=== PATIENT | male | born 1970 | race Caucasian/White ===

== ENCOUNTER 2024-11-25 18:32 | Inpatient (IN) | payer BC, OTHER ==
[~2024-11-25] VITALS: Ht 162.6 cm; Wt 82.9 kg
[~2024-11-25 18:32] MED LIST: UNK ABX
--- NOTE | 2024-11-25 18:40 | ED.PDOC ---
Mult. trauma (HPI) HPI Comments PT BIBA FOR FALLING OFF LADDER APPROX. 6FT. 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 (-) LOC, (+) LEFT SHOULDER & BACK PAIN. C-COLLAR IN PLACE. GCS-15, ALL VSS. Chief Complaint: Fall Injury Time Seen by MD: 18:39 Primary Care Provider: MONICA Reviewed notes: Nurses Notes, Medications, Allergies Allergies: Coded Allergies: No Known Drug Allergy (Verified Allergy, Unknown, 11/25/19) Home Meds Reported Medications [Unk Abx] No Conflict Check 10/04/11 Information Source: Patient Past Medical History PAST MEDICAL HISTORY: Denies Surgical History: Denies all surgeries Family History Family History: Reviewed,noncontributory to illness, No family hx of Cancer, No family hx of DM, No family hx of Heart tevin, No family hx of HTN, No family hx ofKidney tevin, No family hx of Liver tevin, No family hx of Lung tevin, No family hx of Stroke Social History Smoker: Non-Smoker Alcohol: Denies ETOH Use Drugs: Denies Drug Use Constitutional: denies: chills, diaphoresis, fatigue, fever, malaise, sweats, weakness, others EENTM: denies: blurred vision, double vision, ear bleeding, ear discharge, ear drainage, ear pain, ear ringing, eye pain, eye redness, hearing loss, mouth pain, mouth swelling, nasal discharge, nose bleeding, nose congestion, nose pain, photophobia, tearing, throat pain, throat swelling, voice changes, others Respiratory: denies: cough, hemoptysis, orthopnea, SOB at rest, shortness of breath, SOB with excertion, stridor, wheezing, others Cardiovascular: denies: chest pain, dizzy spells, diaphoresis, Dyspnea on exertion, edema, irregular heart beat, left arm pain, lightheadedness, palpitations, PND, syncope, others Gastrointestinal: denies: abdomen distended, abdominal pain, blood streaked bowels, constipated, diarrhea, dysphagia, difficulty swallowing, hematemesis, melena, nausea, poor appetite, poor fluid intake, rectal bleeding, rectal pain, vomiting, others Genitourinary: denies: burning, dysuria, flank pain, frequency, hematuria, incontinence, penile discharge, penile sore, pain, testicle pain, testicle swelling, urgency, others Neurological: reports: headache; denies: dizziness, fainting, left sided numbness, left sided weakness, numbness, paresthesia, pre-existing deficit, right sided numbness, right sided weakness, seizure, speech problems, tingling, tremors, weakness, others Musculoskeletal: reports: back pain, muscle pain, muscle stiffness, neck pain; denies: gout, joint pain, joint swelling, others Integumetry: reports: wounds; denies: bruises, change in color, change in hair/nails, dryness, laceration, lesions, lumps, rash, others Allergic/Immunocompromised: denies: Difficulty Healing, Frequent Infections, Hives, Itching, others Hematologic/Lymphatic: denies: anemia, blood clots, easy bleeding, easy bruising, swollen glands, others Endocrine: denies: excessive hunger, excessive sweating, excessive thirst, excessive urination, flushing, intolerance to cold, intolerance to heat, unexplained weight gain, unexplained weight loss, others Psychiatric: denies: anxiety, bipolar disorder, depression, hopeless, panic disorder, schizophrenia, sleepless, suicidal, others Physical Exam General Appearance: No Apparent Distress, Normal HEENT: Pharynx Normal, TMs Normal Neck: Limited Range of Motion, Tender Lateral Respiratory: Chest Non-Tender, Lungs Clear, No Accessory Muscle Use, No Respiratory Distress, Normal Breath Sounds Cardiovascular: No Edema, No JVD, No Murmur, No Gallop, Normal Peripheral Pulses, Regular Rate/Rhythm Breast Exam: Deferred Gastrointestinal: No Organomegaly, Non Tender, No Pulsatile Mass, Normal Bowel Sounds, Soft Genitalia: Deferred Pelvic: Deferred Rectal: Deferred Extremities: Normal capillary refill, Normal inspection, Normal range of motion, Non-tender, No pedal edema Musculoskeletal : Location: Bilateral (Pinpoint tenderness over L2 without crepitus or step- off. Tenderness over paraspinal muscles C3 through T12. Noted spasms. Negative straight leg raise bilateral strength sensory motion intact positive pedal pulses) Extremity Location: Back, Other (Moderate tenderness palpated over proximal clavicle shaft.) Apperance: Normal Neurologic: Alert, No Motor Deficits, Normal Affect, Normal Mood, No Sensory Deficits Cerebellar Function: Normal Reflexes: Normal Skin: Dry, Normal Color, Warm, Wounds (Noted skin tears right dorsum hand wrist and forearm obvious foreign bodies bleeding controlled) Lymphatic: No Adenopathy Was a procedure done? Was a procedure done?: No Differential Diagnosis Multiple Trauma: Fractures, Spine Injury, Contusion Neck Injury: Cervical Muscle Spasm, Cervical Sprain, Cervical Strain, Cervical Fracture, Spinal Cord Injury X-Ray, Labs, Meds, VS Vital Signs Date Time Temp Pulse Resp B/P (MAP) Pulse Ox O2 Delivery O2 Flow Rate FiO2 11/25/24 18:40 98.3 98 18 142/94 (110) 93 98.3 Lab Test 11/26/24 00:02 Range/Units White Blood Count 13.7 H 4.4-10.8 10^3/uL Red Blood Count 5.05 4.5-5.90 10^6/uL Hemoglobin 15.5 13.5-17.5 g/dL Hematocrit 45.2 41.0-53.0 % Mean Corpuscular Volume 89.6 80.0-100.0 fL Mean Corpuscular Hemoglobin 30.7 28.0-32.0 pg Mean Corpuscular Hemoglobin Concent 34.3 32.0-36.0 g/dL Red Cell Distribution Width 12.8 11.8-14.3 % Platelet Count 245 140-450 10^3/uL Mean Platelet Volume 8.8 6.9-10.8 fL Neutrophils (%) (Auto) 89.1 H 37.0-80.0 % Lymphocytes (%) (Auto) 6.5 L 10.0-50.0 % Monocytes (%) (Auto) 4.1 0.0-12.0 % Eosinophils (%) (Auto) 0.1 0.0-7.0 % Basophils (%) (Auto) 0.2 0.0-2.0 % Neutrophils # (Auto) 12.2 H 1.6-8.6 10 ^3/uL Lymphocytes # (Auto) 0.9 0.4-5.4 10 ^3/uL Monocytes # (Auto) 0.6 0-1.3 10 ^3/uL Eosinophils # (Auto) 0 0-0.8 10 ^3/uL Basophils # (Auto) 0 0-0.2 10 ^3/uL Nucleated Red Blood Cells 0.0 % Sodium Level Pending Potassium Level Pending Chloride Level Pending Carbon Dioxide Level Pending Anion Gap Pending Blood Urea Nitrogen Pending Creatinine Pending Glomerular Filtration Rate Calc Pending BUN/Creatinine Ratio Pending Serum Glucose Pending Calcium Level Pending Total Bilirubin Pending Aspartate Amino Transferase (AST) Pending Alanine Aminotransferase (ALT) Pending Alkaline Phosphatase Pending Total Protein Pending Albumin Pending Current Medications Medications (Trade) Dose Ordered Sig/Thang Route Start Time Stop Time Status Last Admin Ketorolac Tromethamine (Toradol Injection) 30 mg ONCE ONCE IV 11/25/24 21:00 11/25/24 21:01 DC 11/25/24 21:21 X-Ray, Labs, Meds, VS Comment IMAGING: THORACIC SPINE CT IMPRESSION: 1. Mild acute compression fracture of the superior endplate of L2 without osseous retropulsion. 2. Degenerative changes of the thoracolumbar spine as detailed, most pronounced at L5-S1. 3. Incompletely assessed left clavicular fracture. 4. Additional findings as detailed. LUMBAR SPINE CT IMPRESSION: 1. Mild acute compression fracture of the superior endplate of L2 without osseous retropulsion. 2. Degenerative changes of the thoracolumbar spine as detailed, most pronounced at L5-S1. 3. Incompletely assessed left clavicular fracture. 4. Additional findings as detailed. CERVICAL CT IMPRESSION: 1. Acute comminuted and mildly displaced fracture of the proximal left clavicle with mild adjacent stranding. 2. No acute displaced fracture within the cervical spine. 3. Degenerative changes of the cervical spine as detailed. : CBC, CMP, UA PENDING MEDICATIONS: TORADOL 30 MG IV PUSH PATIENT REFUSED MORPHINE AND FENTANYL PLAN: ADMIT FOR INTRACTABLE PAIN, CLAVICLE FRACTURE, L2 COMPRESSION FRACTURE OF THE ENDPLATE Time of 1ST Reevaluation: 18:40 Reevaluation 1ST: Unchanged Time of 2ND Reevaluation: 21:00 Reevaluation 2ND: Improved Time of 3RD Reevaluation: 23:49 Reevaluation 3RD: Unchanged Patient Education/Counseling: Diagnosis, Treatment, Prognosis, Need For Follow Up Family Education/Counseling: No Family Present Departure 1 Departure Time of Disposition: 21:33 Impression: Primary Impression: Compression fracture of L2 lumbar vertebra Qualified Codes: S32.020A - Wedge compression fracture of second lumbar vertebra, initial encounter for closed fracture Additional Impressions: Clavicle fracture, shaft Qualified Codes: S42.025A - Nondisplaced fracture of shaft of left clavicle, initial encounter for closed fracture Intractable pain Status post fall Disposition: 09 ADMITTED INPATIENT Condition: Stable Discharged With: Self Critical Care Note Critical Care Time?: No Stability Stability form required: DEWAYNE Melton Nov 25, 2024 18:40
--- NOTE | 2024-11-25 19:21 | DVH ---
XY L CLAVICLE COMPLETE XRAY, HISTORY: trauma 6 ft fall TECHNICAL DATA: AP and AP cephalic views were obtained of the left clavicle. COMPARISON: None FINDINGS: There is no fracture . Healed fracture of the left mid clavicle with callus formation. The acromiocla vicular joint appears preserved. . IMPRESSION: 1. Old appearing left mid- clavicular fracture
--- NOTE | 2024-11-25 20:07 | DVH ---
CT OF THE CERVICAL SPINE WITHOUT CONTRAST HISTORY: Trauma status post 6 ft fall COMPARISON: None TECHNIQUE: Helical images through the cervical spine were obtained without contrast. Sagittal and cor onal reformats were obtained. One or more of the following radiation dose reduction techniques were u sed for this examination: automated exposure control, adjustment of the mA and/or kV according to pat ient size, use of iterative reconstruction technique. Dose: CTDIvol: 23.12 mGy, DLP: 601.5 mGy-cm FINDINGS: Along the margin of the evaluation, there is evidence of an acute comminuted and displaced fracture o f the proximal left clavicle. There is mild adjacent stranding. The vertebral body heights are well-maintained without evidence of fracture. There are degenerative c hanges of the cervical spine characterized by endplate osteophytosis and intervertebral disc space na rrowing, most pronounced at C3-4 on C5-6. There is mild uncovertebral and facet hypertrophy without h igh-grade spinal canal or neural foraminal narrowing. There is pleural-parenchymal scarring in the gema ng apices. The paraspinal soft tissues are otherwise unremarkable. IMPRESSION: 1. Acute comminuted and mildly displaced fracture of the proximal left clavicle with mild adjacent st randing. 2. No acute displaced fracture within the cervical spine. 3. Degenerative changes of the cervical spine as detailed.
--- NOTE | 2024-11-25 20:16 | DVH ---
CT OF THE THORACIC AND LUMBAR SPINE WITHOUT CONTRAST HISTORY: Trauma status post 6 ft fall COMPARISON: None TECHNIQUE: Axial images through the thoracic and lumbar spine were obtained without contrast. Coronal and sagittal reformats were obtained. One or more of the following radiation dose reduction techniqu es were used for this examination: automated exposure control, adjustment of the mA and/or kV accordi ng to patient size, use of iterative reconstruction technique. Dose: Thoracic spine: CTDIvol: 36.36 mGy, DLP: 15089.50 mGy-cm, lumbar spine: CTDIvol: 35.61 mGy, DLP : 1129.36 mGy-cm FINDINGS: Thoracic spine: There is no acute displaced fracture. There are mild degenerative changes of the thoracic spine mary jane acterized by endplate osteophytosis and minimal intervertebral disc space narrowing. There is no high -grade spinal canal or neural foraminal stenosis. Scattered nonspecific and primarily dependent pulmonary opacities are seen within the lungs. The para spinal soft tissues are unremarkable. A left clavicular fracture is incompletely assessed. Lumbar spine: There is a mild acute compression fracture involving the superior endplate of L2. There is no osseous retropulsion. There is mild height loss. There is grade 1 anterolisthesis of L5 on S1 on the basis of bilateral pars defects, contributing to severe bilateral neural foraminal narrowing. Sclerotic changes are present across the opposing endpla jacques of L5-S1. There is also vacuum disc phenomenon at this level. There is facet arthropathy within t he lower lumbar spine. There are bilateral nonobstructing renal calculi. IMPRESSION: 1. Mild acute compression fracture of the superior endplate of L2 without osseous retropulsion. 2. Degenerative changes of the thoracolumbar spine as detailed, most pronounced at L5-S1. 3. Incompletely assessed left clavicular fracture. 4. Additional findings as detailed.
[2024-11-25] MEDS: KETOROLAC TROMETH 30 MG/ML 1ML VIAL IV ONE (21:21)
[2024-11-26] MEDS ORDERED: DOCUSATE SOD 100 MG CAP PO PRN
[2024-11-26 00:31] LABS: Hematocrit 45.2 % (41.0-53.0); Hemoglobin 15.5 g/dL (13.5-17.5); Mean Corpuscular Hemoglobin 30.7 pg (28.0-32.0); Mean Corpuscular Volume 89.6 fL (80.0-100.0); Nucleated Red Blood Cells % 0.0 %
[2024-11-26 00:49] LABS: Albumin 4.8 g/dL (3.2-4.8); Alkaline Phosphatase 66 U/L (46-116); Anion Gap 12 (5-15); BUN/Creatinine Ratio 13.9 (10.0-20.0); Bilirubin, Total 0.6 mg/dL (0.2-1.0); Blood Urea Nitrogen 17 mg/dL (9-23); Calcium 9.7 mg/dL (8.7-10.4); Carbon Dioxide 23 mmol/L (20-31); Chloride 107 mmol/L (98-107); Potassium 4.1 mmol/L (3.5-5.1); Sodium 142 mmol/L (136-145); Total Protein 7.2 g/dL (5.7-8.2)
[2024-11-26 00:54] LABS: Alanine Aminotransferase 51 U/L (7-40); Glucose 132 mg/dL (74-106)
[2024-11-26] MEDS: SODIUM CHLORIDE 0.9% 1,000 ML IV SCH (02:17)
--- NOTE | 2024-11-26 02:21 | DVHHP2 ---
History of Present Illness Reason for Visit: Compression fracture of L2 lumbar vertebra History of Present Illness The patient is a 54-year-old male who denies past medical history presented to [facility] ED for evaluation of fall injury off ladder approximately 6 ft. Patient reports he was fixing roof with another person when he fell from the roof with sustained injury. Patient started experiencing neck, left shoulder and back pain and C-collar was placed EN route to our facility ED. patient was seen and evaluated in the ED, laboratory data shows WBC 13.7, platelets 245, sodium 142, potassium 4.1, BUN 17, creatinine 1.22, GFR 70, glucose 132, AST 41, ALT 51, calcium 9.7, blood pressure 142/94, heart rate 98, temperature 98.3 F, O2 saturation 93% on oxygen. Cervical spine CT revealing acute comminuted and mildly displaced fracture of the proximal left clavicle with mild adjacent stranding. Lumbar spine CT revealing mild acute compression fracture of the superior endplate of L2 without osseous retropulsion. Patient was given Toradol 30 IV x1, started IV antibiotic regimen Rocephin, please see medication orders section in the computer. On my assessment, patient denied chest pain, no headache, no dizziness, no loss of consciousness, no blurry vision, no shortness of breath, no diaphoresis, no nausea, no vomiting, no fever, no chills. Patient was admitted for further evaluation and medical management. Past Medical History Denies past medical history Past Surgical History Denies all surgeries Family History Reviewed, noncontributory to the management of this case. Past Social History The patient lives at home, denies smoking, alcohol or illicit drugs abuse. Review of Systems Constitutional: No: Fever, Chills, Sweats, Weakness, Malaise, Other Eyes: No: Pain, Vision change, Conjunctivae inflammation, Eyelid inflammation, Other, Redness ENT: No: Ear pain, Ear discharge, Nose pain, Nose discharge, Nose congestion, Mouth pain, Mouth swelling, Throat pain, Throat swelling, Other Cardiovascular: No: Chest Pain, Palpitations, Orthopnea, Paroxysmal Noc. Dyspnea, Edema, Lt Headedness, Other Gastrointestinal: No: Nausea, Vomiting, Abdominal Pain, Diarrhea, Constipation, Melena, Hematochezia, Other Genitourinary: No Dysuria, No Frequency, No Incontinence, No Hematuria, No Retention, No Other Musculoskeletal: neck pain, shoulder pain, back pain; No: other, arm pain, hand pain, leg pain, foot pain Skin: No: Rash, Lesions, Jaundice, Bruising, Other Neurological: Other (Headache); No: Weakness, Numbness, Incoordination, Change in speech, Confusion, Seizures Allergies: Coded Allergies: No Known Drug Allergy (Verified Allergy, Unknown, 11/25/19) Medications Current Medications Medications Dose Ordered Sig/Thang Route Start Time Stop Time Status Last Admin Dose Admin Sodium Chloride 1,000 ml @ 60 mls/hr [id number] IV 11/26/24 00:00 11/26/24 02:17 60 MLS/HR Acetaminophen/ Hydrocodone Bitart 1 tab Q4HP PRN PO 11/26/24 00:00 Ondansetron HCl 4 mg Q4HP PRN IV 11/26/24 00:00 Docusate Sodium 100 mg BIDPRN PRN PO 11/26/24 00:00 Enoxaparin Sodium 40 mg DAILY SC 11/26/24 10:00 UNV Acetaminophen 650 mg Q6HP PRN PO 11/26/24 00:00 Morphine Sulfate 2 mg Q4HPRN PRN IV 11/26/24 00:00 Exam Vital Signs Vital Signs Date Time Temp Pulse Resp B/P (MAP) Pulse Ox O2 Delivery O2 Flow Rate FiO2 11/25/24 18:40 98.3 98 18 142/94 (110) 93 98.3 General Appearance: Alert, Oriented X3, Cooperative, No acute distress HEENT: Atraumatic, PERRLA, EOMI, Mucous membr. moist/pink Respiratory: Clear to auscultation, Normal air movement Cardiovascular: Regular rate, Normal S1, Normal S2, No murmurs Abdominal: Normal bowel sounds, Soft, No tenderness, No hepatospenomegaly, No masses Extremities: No clubbing, No cyanosis, No edema, Normal pulses, Other (Shoulder pain, back pain.) Skin: No rashes, No breakdown, No significant lesion Neuro: Normal speech, Normal tone, Sensation intact, Cranial nerves 3-12 NL, Reflexes 2+, Other (Unsteady gait) Psych/Mental Status: Mental status NL, Mood NL Labs/Xrays Labs Test 11/26/24 00:02 Range/Units White Blood Count 13.7 H 4.4-10.8 10^3/uL Red Blood Count 5.05 4.5-5.90 10^6/uL Hemoglobin 15.5 13.5-17.5 g/dL Hematocrit 45.2 41.0-53.0 % Mean Corpuscular Volume 89.6 80.0-100.0 fL Mean Corpuscular Hemoglobin 30.7 28.0-32.0 pg Mean Corpuscular Hemoglobin Concent 34.3 32.0-36.0 g/dL Red Cell Distribution Width 12.8 11.8-14.3 % Platelet Count 245 140-450 10^3/uL Mean Platelet Volume 8.8 6.9-10.8 fL Neutrophils (%) (Auto) 89.1 H 37.0-80.0 % Lymphocytes (%) (Auto) 6.5 L 10.0-50.0 % Monocytes (%) (Auto) 4.1 0.0-12.0 % Eosinophils (%) (Auto) 0.1 0.0-7.0 % Basophils (%) (Auto) 0.2 0.0-2.0 % Neutrophils # (Auto) 12.2 H 1.6-8.6 10 ^3/uL Lymphocytes # (Auto) 0.9 0.4-5.4 10 ^3/uL Monocytes # (Auto) 0.6 0-1.3 10 ^3/uL Eosinophils # (Auto) 0 0-0.8 10 ^3/uL Basophils # (Auto) 0 0-0.2 10 ^3/uL Nucleated Red Blood Cells 0.0 % Sodium Level 142 136-145 mmol/L Potassium Level 4.1 3.5-5.1 mmol/L Chloride Level 107 98-107 mmol/L Carbon Dioxide Level 23 20-31 mmol/L Anion Gap 12 5-15 Blood Urea Nitrogen 17 9-23 mg/dL Creatinine 1.22 0.700-1.30 mg/dL Glomerular Filtration Rate Calc 70 >90 mL/min BUN/Creatinine Ratio 13.9 10.0-20.0 Serum Glucose 132 H 74-106 mg/dL Calcium Level 9.7 8.7-10.4 mg/dL Total Bilirubin 0.6 0.2-1.0 mg/dL Aspartate Amino Transferase (AST) 41 H <34 U/L Alanine Aminotransferase (ALT) 51 H 7-40 U/L Alkaline Phosphatase 66 46-116 U/L Total Protein 7.2 5.7-8.2 g/dL Albumin 4.8 3.2-4.8 g/dL PATIENT: MINDY CUMMINS JR.ACCT: [id number] UNIT: [id number] : 1970 LOC: ER ROOM / BED: / AGE / SEX: 54 / M ADM STATUS: REG ER SERVICE 1841 ORDERING PHYSICIAN: DEWAYNE SKELTON PROCEDURE(s): CS2 - CERVICAL WITHOUT CONTRAST REASON: Trauma status post 6 ft fall ORDER NUMBER(s): [id number], ACCESSION NUMBER(s): [id number] CT OF THE CERVICAL SPINE WITHOUT CONTRAST HISTORY: Trauma status post 6 ft fall COMPARISON: None TECHNIQUE: Helical images through the cervical spine were obtained without contrast. Sagittal and coronal reformats were obtained. One or more of the following radiation dose reduction techniques were used for this examination: automated exposure control, adjustment of the mA and/or kV according to patient size, use of iterative reconstruction technique. Dose: CTDIvol: 23.12 mGy, DLP: 601.5 mGy-cm FINDINGS: Along the margin of the evaluation, there is evidence of an acute comminuted and displaced fracture of the proximal left clavicle. There is mild adjacent stranding. The vertebral body heights are well-maintained without evidence of fracture. There are degenerative changes of the cervical spine characterized by endplate osteophytosis and intervertebral disc space narrowing, most pronounced at C3-4 on C5-6. There is mild uncovertebral and facet hypertrophy without high-grade spinal canal or neural foraminal narrowing. There is pleural-parenchymal scarring in the lung apices. The paraspinal soft tissues are otherwise unremarkable. IMPRESSION: 1. Acute comminuted and mildly displaced fracture of the proximal left clavicle with mild adjacent stranding. 2. No acute displaced fracture within the cervical spine. 3. Degenerative changes of the cervical spine as detailed. ORDERING PHYSICIAN: DEWAYNE SKELTON PROCEDURE(s): LCLAV - L CLAVICLE COMPLETE XRAY REASON: trauma 6 ft fall ORDER NUMBER(s): [id number], ACCESSION NUMBER(s): [id number] XY L CLAVICLE COMPLETE XRAY, HISTORY: trauma 6 ft fall TECHNICAL DATA: AP and AP cephalic views were obtained of the left clavicle. COMPARISON: None FINDINGS: There is no fracture . Healed fracture of the left mid clavicle with callus formation. The acromioclavicular joint appears preserved. . IMPRESSION: 1. Old appearing left mid- clavicular fracture ORDERING PHYSICIAN: DEWAYNE SKELTON CLERICAL ORDER FILLER PROCEDURE(s): LS2CT - LS SPINE WO CONTRAST REASON: Status post trauma 6 ft fall ORDER NUMBER(s): [id number], ACCESSION NUMBER(s): [id number] CT OF THE THORACIC AND LUMBAR SPINE WITHOUT CONTRAST HISTORY: Trauma status post 6 ft fall COMPARISON: None TECHNIQUE: Axial images through the thoracic and lumbar spine were obtained without contrast. Coronal and sagittal reformats were obtained. One or more of the following radiation dose reduction techniques were used for this examination: automated exposure control, adjustment of the mA and/or kV according to patient size, use of iterative reconstruction technique. Dose: Thoracic spine: CTDIvol: 36.36 mGy, DLP: 69336.50 mGy-cm, lumbar spine: CTDIvol: 35.61 mGy, DLP: 1129.36 mGy-cm FINDINGS: Thoracic spine: There is no acute displaced fracture. There are mild degenerative changes of the thoracic spine characterized by endplate osteophytosis and minimal intervertebral disc space narrowing. There is no high-grade spinal canal or neural foraminal stenosis. Scattered nonspecific and primarily dependent pulmonary opacities are seen within the lungs. The paraspinal soft tissues are unremarkable. A left clavic ular fracture is incompletely assessed. Lumbar spine: There is a mild acute compression fracture involving the superior endplate of L2. There is no osseous retropulsion. There is mild height loss. There is grade 1 anterolisthesis of L5 on S1 on the basis of bilateral pars defects, contributing to severe bilateral neural foraminal narrowing. Sclerotic changes are present across the opposing endplates of L5-S1. There is also vacuum disc phenomenon at this level. There is facet arthropathy within the lower l umbar spine. There are bilateral nonobstructing renal calculi. IMPRESSION: 1. Mild acute compression fracture of the superior endplate of L2 without osseous retropulsion. 2. Degenerative changes of the thoracolumbar spine as detailed, most pronounced at L5-S1. 3. Incompletely assessed left clavicular fracture. 4. Additional findings as detailed. ORDERING PHYSICIAN: DEWAYNE SKELTON CLERICAL ORDER FILLER PROCEDURE(s): TS2CT - THORACIC SPINE WO CONTRAS REASON: Trauma status post 6 ft fall ORDER NUMBER(s): [id number], ACCESSION NUMBER(s): [id number] CT OF THE THORACIC AND LUMBAR SPINE WITHOUT CONTRAST HISTORY: Trauma status post 6 ft fall COMPARISON: None TECHNIQUE: Axial images through the thoracic and lumbar spine were obtained wi thout contrast. Coronal and sagittal reformats were obtained. One or more of the following radiation dose reduction techniques were used for this examination: automated exposure control, adjustment of the mA and/or kV according to patient size, use of iterative reconstruction technique. Dose: Thoracic spine: CTDIvol: 36.36 mGy, DLP: 23764.50 mGy-cm, lumbar spine: CTDIvol: 35.61 mGy, DLP: 1129.36 mGy-cm FINDINGS: Thoracic spine: There is no acute displaced fracture. There are mild degenerative changes of the thoracic spine characterized by endplate osteophytosis and minimal intervertebral disc space narrowing. There is no high-grade spinal canal or neural foraminal stenosis. Scattered nonspecific and primarily dependent pulmonary opacities are seen within the lungs. The paraspinal soft tissues are unremarkable. A left clavicular fracture is incompletely assessed. Lumbar spine: There is a mild acute compression fracture involving the superior endplate of L2. There is no osseous retropulsion. There is mild height loss. There is grade 1 anterolisthesis of L5 on S1 on the basis of bilateral pars defects, contributing to severe bilateral neural foraminal narrowing. Sclerotic changes are present across the opposing endplates of L5-S1. There is also vacuum disc phenomenon at this level. There is facet arthropathy within the lower lumbar spine. There are bilateral nonobstructing renal calculi. IMPRESSION: 1. Mild acute compression fracture of the superior endplate of L2 without osseous retropulsion. 2. Degenerative changes of the thoracolumbar spine as detailed, most pronounced at L5-S1. 3. Incompletely assessed left clavicular fracture. 4. Additional findings as detailed. Assessment/Plan Assessment/Plan Compression fracture of L2 lumbar vertebra Intractable pain Leukocytosis, unspecified Status post fall Clavicle fracture, shaft Nondisplaced fracture of shaft of left clavicle, initial encounter for closed fracture Wedge compression fracture of second lumbar vertebra, initial encounter for closed fracture Plan 1. Admit to telemetry unit 2. Breathing treatment 3. Pain control management 4. IV antibiotic management 5. Management of fluids and electrolytes 6. Consultation for orthopedic 7. Diagnostic test lumbar spine CT 8. DVT prophylaxis-on Lovenox 9. Repeat labs CBC, CMP in a.m. 10. Home medication reviewed and reconciled 11. Continue with current medical management 12. Treatment plan discussed with patient and RN. Patient verbalized understanding. Plan discussed with: Patient, Other (RN) My Orders Orders - LUCILA SANTILLAN DNP Procedure Category Date Status Time * Orthopedic Consult CONS 11/25/24 Transmitted 23:59 Allergies JONNA 11/25/24 In Process 23:59 Code Status CODE 11/25/24 Transmitted 23:59 2 Gm Sodium Diet DIET 11/26/24 Transmitted Breakfast Sodium Chloride 0.9% PHA 11/26/24 In Process 00:00 Oxygen Per Hour RT 11/25/24 Transmitted 23:59 Hydrocodone-Acet PHA 11/26/24 In Process 5/325mg Tab (Armstrong 00:00 Ondansetron Hcl PHA 11/26/24 In Process (Zofran) 00:00 Docusate Sodium PHA 11/26/24 In Process Capsule (Colace 00:00 Enoxaparin Sodium PHA 11/26/24 Pending (Lovenox) 10:00 Fall Risk Precautions JONNA 11/25/[address] 23:59 Complete Blood Count LAB 11/26/24 Logged 04:00 Comprehensive LAB 11/26/24 Logged Metabolic Panel 04:00 Condition: Serious JONNA 11/25/24 In Process 23:59 Acetaminophen Tablet PHA 11/26/24 In Process (Tylenol Tablet) 00:00 Bedrest With Bathroom JONNA 11/25/24 In Process Privileg 23:59 Morphine Sulfate PHA 11/26/24 In Process Injection 00:00 Sequential JONNA 11/25/24 In Process Compression Device Problem List: (1) Compression fracture of L2 lumbar vertebra (2) Intractable pain (3) Leukocytosis, unspecified (4) Status post fall (5) Clavicle fracture, shaft (6) Nondisplaced fracture of shaft of left clavicle, initial encounter for closed fracture (7) Wedge compression fracture of second lumbar vertebra, initial encounter for closed fracture Date of Service: Nov 26, 2024 Billing Provider: LUCILA SANTILLAN DNP Common Visit Codes: [id number] INP/OBS CARE (HIGH) LUCILA SANTILLAN DNP Nov 26, 2024 02:21
[2024-11-26] MEDS ORDERED: MORPHINE SULFATE INJ 2 MG/ml SYRG IV PRN (02:30)
[2024-11-26] MEDS ORDERED: NITROGLYCERIN 0.4 MG SL TAB SL PRN (02:30)
[2024-11-26 02:35] VITALS: PULSE 89; RESP 20; O2SAT 92
[2024-11-26] MEDS: cefTRIAXone 1GM/50ML D5W 50 ML IV ONE (02:59)
[2024-11-26] MEDS: MORPHINE SULFATE INJ 2 MG/ml SYRG IV PRN (03:00)
[2024-11-26] MEDS: ONDANSETRON HCL 4 MG/2 ML VIAL IV PRN (03:00)
[2024-11-26 06:07] LABS: Hematocrit 41.2 % (41.0-53.0); Hemoglobin 14.4 g/dL (13.5-17.5); Mean Corpuscular Hemoglobin 31.2 pg (28.0-32.0); Mean Corpuscular Volume 89.5 fL (80.0-100.0); Nucleated Red Blood Cells % 0.1 %
[2024-11-26 06:20] LABS: Alanine Aminotransferase 36 U/L (7-40); Albumin 4.3 g/dL (3.2-4.8); Alkaline Phosphatase 57 U/L (46-116); Anion Gap 9 (5-15); BUN/Creatinine Ratio 16.5 (10.0-20.0); Bilirubin, Total 0.5 mg/dL (0.2-1.0); Blood Urea Nitrogen 17 mg/dL (9-23); Calcium 9.9 mg/dL (8.7-10.4); Carbon Dioxide 23 mmol/L (20-31); Potassium 4.0 mmol/L (3.5-5.1); Sodium 141 mmol/L (136-145); Total Protein 6.3 g/dL (5.7-8.2)
[2024-11-26 06:24] LABS: Chloride 109 mmol/L (98-107); Glucose 123 mg/dL (74-106)
[2024-11-26 08:00] VITALS: PULSE 82; RESP 14; O2SAT 90
[2024-11-26 08:36] LABS: Urine Amorphous Crystal FEW /hpf (None Seen); Urine Protein, UAD Negative (Negative)
[2024-11-26] MEDS: ENOXAPARIN SOD 40 MG/0.4 ML SYRINGE SC SCH (10:21)
[2024-11-26] MEDS: ACETAMINOPHEN 325 MG TAB PO PRN (10:21)
--- NOTE | 2024-11-26 14:01 | DVHPN2 ---
Reviewed: Care Plan, H&P, Labs, Medications, Previous Orders, Radiology Changes from previous H/P or p: No Changes Eyes: No Pain, No Vision change, No Conjunctivae inflammation, No Eyelid inflammation, No Other, No Redness ENT: No Ear pain, No Ear discharge, No Nose pain, No Nose discharge, No Nose congestion, No Mouth pain, No Mouth swelling, No Throat pain, No Throat swelling, No Other Cardiovascular: No Chest Pain, No Palpitations, No Orthopnea, No Paroxysmal Noc. Dyspnea, No Edema, No Lt Headedness, No Other Gastrointestinal: No Nausea, No Vomiting, No Abdominal Pain, No Diarrhea, No Constipation, No Melena, No Hematochezia, No Other Genitourinary: No Dysuria, No Frequency, No Incontinence, No Hematuria, No Retention, No Other Musculoskeletal: No other; neck pain, shoulder pain; No arm pain; back pain; No hand pain, No leg pain, No foot pain Skin: No Rash, No Lesions, No Jaundice, No Bruising, No Other Objective Vitals Vital Signs Date Time Temp Pulse Resp B/P (MAP) Pulse Ox O2 Delivery O2 Flow Rate FiO2 11/26/24 13:00 80 15 155/77 (103) 92 11/26/24 08:05 98.0 98.0 11/26/24 08:00 Room Air* 0 21 Intake/Output Intake and Output 11/26/24 07:00 Intake Total 350 ml Balance 350 ml Intake IV Total 350 ml Medications Current Medications Medications Dose Ordered Sig/Thang Route Start Time Stop Time Status Last Admin Dose Admin Sodium Chloride 1,000 ml @ 60 mls/hr [id number] IV 11/26/24 00:00 11/26/24 02:17 60 MLS/HR Acetaminophen/ Hydrocodone Bitart 1 tab Q4HP PRN PO 11/26/24 00:00 Ondansetron HCl 4 mg Q4HP PRN IV 11/26/24 00:00 11/26/24 03:00 4 MG Docusate Sodium 100 mg BIDPRN PRN PO 11/26/24 00:00 Enoxaparin Sodium 40 mg DAILY SC 11/26/24 10:00 11/26/24 10:21 40 MG Acetaminophen 650 mg Q6HP PRN PO 11/26/24 00:00 11/26/24 10:21 650 MG Morphine Sulfate 2 mg Q4HPRN PRN IV 11/26/24 00:00 11/26/24 03:00 2 MG Ceftriaxone Sodium 50 ml @ 100 mls/hr DAILY@09 IV 11/27/24 09:00 Nitroglycerin 0.4 mg Q5MINP PRN SL 11/26/24 02:30 Morphine Sulfate 2 mg Q30M PRN IV 11/26/24 02:30 Laboratory Results Laboratory Tests 11/26/24 05:25 Chemistry Test 11/26/24 00:02 11/26/24 05:25 Albumin 4.8 g/dL (3.2-4.8) 4.3 g/dL (3.2-4.8) Calcium Level 9.7 mg/dL (8.7-10.4) 9.9 mg/dL (8.7-10.4) Total Protein 7.2 g/dL (5.7-8.2) 6.3 g/dL (5.7-8.2) LFT Test 11/26/24 00:02 11/26/24 05:25 Alanine Aminotransferase (ALT) 51 U/L (7-40) H 36 U/L (7-40) Alkaline Phosphatase 66 U/L (46-116) 57 U/L (46-116) Aspartate Amino Transferase (AST) 41 U/L (<34) H 31 U/L (<34) Total Bilirubin 0.6 mg/dL (0.2-1.0) 0.5 mg/dL (0.2-1.0) Urinalysis Test 11/26/24 08:12 Urine Color Light-green (Yellow) Urine Clarity Clear (Clear) Urine pH 5.5 (5.0-9.0) Urine Specific [place] 1.031 (1.001-1.035) Urine Protein Negative (Negative) Urine Ketones Negative (Negative) Urine Blood Negative /uL (Negative) Urine Nitrite Negative (Negative) Urine Bilirubin Negative (Negative) Urine Urobilinogen Normal mg/dL (Negative) Urine Leukocyte Esterase Negative /uL (Negative) Urine RBC 1 /hpf (0 - 3) Urine Microscopic WBC 4 /HPF (0-3) H Urine Squamous Epithelial Cells Few /hpf (<5) Urine Amorphous Crystals Few /hpf (None Seen) Urine Bacteria Few /hpf (None Seen) H Urine Mucus Few (None Seen) Urine Glucose Normal mg/dL (Normal) Labs and/or images reviewed: Labs reviewed by me, Image(s) reviewed by me Assessment/Plan Assessment/Plan Compression fracture of L2 lumbar vertebra: Consult for Dr. Joe Intractable pain Leukocytosis, unspecified: Rocephin Status post fall Nondisplaced fracture of shaft of left clavicle, initial encounter for closed fracture Plan discussed with: Patient Date of Service: Nov 26, 2024 Billing Provider: JEFF PADILLA MD Common Visit Codes: [id number] INP/OBS CARE(HIGH) JEFF PADILLA MD Nov 26, 2024 14:01
[2024-11-26] MEDS: HYDROcodone-ACET 5/325MG TAB PO PRN (14:49)
[2024-11-26 14:54] LABS: Amphetamine Screen, Urine Neg (NEGATIVE); Barbiturate Scree,Urine Neg (NEGATIVE); Benzodiazephine Screen, Urine Neg (NEGATIVE); Cannabinoid Screen, Urine Neg (NEGATIVE); Cocaine Screen, Urine Neg (NEGATIVE); Opiate Scree,Urine Pos (NEGATIVE); Phencyclidine Screen, Urine Neg (NEGATIVE)
[2024-11-26] MEDS: FOLIC ACID 1 MG, MULTIPLE VITAMIN 10 ML, MAGNESIUM SULF SDV 50% 8 MEQ, THIAMINE INJ 100... INJ SCH (19:49)
[2024-11-26 23:23] VITALS: BP 153/82; PULSE 80; RESP 22; TEMP 98.6; O2SAT 97
[2024-11-26 23:52] VITALS: PULSE 95
[2024-11-27] VITALS (9 sets, daily range): BP systolic 116–161; BP diastolic 73–106; PULSE 75–91; RESP 16–18; TEMP 97.2–99.5; O2SAT 0–100
[2024-11-27] MEDS: cefTRIAXone 1GM/50ML D5W 50 ML IV SCH (09:53)
--- NOTE | 2024-11-27 11:23 | DVHPN2 ---
Reviewed: Care Plan, H&P, Labs, Medications, Previous Orders, Radiology Changes from previous H/P or p: No Changes Eyes: No Pain, No Vision change, No Conjunctivae inflammation, No Eyelid inflammation, No Other, No Redness ENT: No Ear pain, No Ear discharge, No Nose pain, No Nose discharge, No Nose congestion, No Mouth pain, No Mouth swelling, No Throat pain, No Throat swelling, No Other Cardiovascular: No Chest Pain, No Palpitations, No Orthopnea, No Paroxysmal Noc. Dyspnea, No Edema, No Lt Headedness, No Other Gastrointestinal: No Nausea, No Vomiting, No Abdominal Pain, No Diarrhea, No Constipation, No Melena, No Hematochezia, No Other Genitourinary: No Dysuria, No Frequency, No Incontinence, No Hematuria, No Retention, No Other Musculoskeletal: No other; neck pain, shoulder pain; No arm pain; back pain; No hand pain, No leg pain, No foot pain Skin: No Rash, No Lesions, No Jaundice, No Bruising, No Other Objective Vitals Vital Signs Date Time Temp Pulse Resp B/P (MAP) Pulse Ox O2 Delivery O2 Flow Rate FiO2 11/27/24 08:30 97.2 83 16 116/78 (91) 95 97.2 11/27/24 08:00 Room Air* 0 21 Intake/Output Intake and Output 11/27/24 07:00 Intake Total 1060 ml Output Total 700 ml Balance 360 ml Intake Oral 400 ml IV Total 660 ml Output Urine Total 700 ml Medications Current Medications Medications Dose Ordered Sig/Thang Route Start Time Stop Time Status Last Admin Dose Admin Sodium Chloride 1,000 ml @ 60 mls/hr [id number] IV 11/26/24 00:00 11/27/24 09:52 60 MLS/HR Acetaminophen/ Hydrocodone Bitart 1 tab Q4HP PRN PO 11/26/24 00:00 11/26/24 14:49 1 TAB Ondansetron HCl 4 mg Q4HP PRN IV 11/26/24 00:00 11/26/24 03:00 4 MG Docusate Sodium 100 mg BIDPRN PRN PO 11/26/24 00:00 Enoxaparin Sodium 40 mg DAILY SC 11/26/24 10:00 11/27/24 09:53 40 MG Acetaminophen 650 mg Q6HP PRN PO 11/26/24 00:00 11/27/24 10:04 650 MG Morphine Sulfate 2 mg Q4HPRN PRN IV 11/26/24 00:00 11/27/24 04:13 2 MG Ceftriaxone Sodium 50 ml @ 100 mls/hr DAILY@09 IV 11/27/24 09:00 11/27/24 09:53 100 MLS/HR Nitroglycerin 0.4 mg Q5MINP PRN SL 11/26/24 02:30 Morphine Sulfate 2 mg Q30M PRN IV 11/26/24 02:30 Folic Acid 1 mg/ Multivitamins 10 ml/Magnesium Sulfate 8 meq/ Thiamine HCl 100 mg/Dextrose 1,013.2 ml @ 125.001 mls/hr DAILY@1800 INJ 11/26/24 18:00 11/26/24 19:49 125.001 MLS/HR Chlordiazepoxide HCl 50 mg Q12H PO 11/27/24 19:00 11/28/24 07:01 Chlordiazepoxide HCl 25 mg Q12H PO 11/28/24 19:00 11/29/24 07:01 Chlordiazepoxide HCl 25 mg QAM PO 11/30/24 07:00 11/30/24 07:01 Laboratory Results Laboratory Tests 11/26/24 05:25 Urinalysis Test 11/26/24 08:12 Urine Color Light-green (Yellow) Urine Clarity Clear (Clear) Urine pH 5.5 (5.0-9.0) Urine Specific [place] 1.031 (1.001-1.035) Urine Protein Negative (Negative) Urine Ketones Negative (Negative) Urine Blood Negative /uL (Negative) Urine Nitrite Negative (Negative) Urine Bilirubin Negative (Negative) Urine Urobilinogen Normal mg/dL (Negative) Urine Leukocyte Esterase Negative /uL (Negative) Urine RBC 1 /hpf (0 - 3) Urine Microscopic WBC 4 /HPF (0-3) H Urine Squamous Epithelial Cells Few /hpf (<5) Urine Amorphous Crystals Few /hpf (None Seen) Urine Bacteria Few /hpf (None Seen) H Urine Mucus Few (None Seen) Urine Glucose Normal mg/dL (Normal) Labs and/or images reviewed: Labs reviewed by me, Image(s) reviewed by me Assessment/Plan Assessment/Plan Compression fracture of L2 lumbar vertebra: Consult for Dr. 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 PHA 11/26/24 In Process 18:00 Chlordiazepoxide Hcl PHA 11/27/24 In Process Capsule (Librium Ca 19:00 Chlordiazepoxide Hcl PHA 11/28/24 In Process Capsule (Librium Ca 19:00 Chlordiazepoxide Hcl PHA 11/30/24 In Process Capsule (Librium Ca 07:00 Date of Service: Nov 27, 2024 Billing Provider: JEFF PADILLA MD Common Visit Codes: [id number] INP/OBS CARE(HIGH) JEFF PADILLA MD Nov 27, 2024 11:23
--- NOTE | 2024-11-27 12:15 | DVH ---
CT brain without contrast CLINICAL INDICATION: Fall from ladder with altered mental status FINDINGS: The study was performed in a multidetector scanner. This study performed taking axial image s from the skull base up to the vertex. Both brain and bone windows are photographed. Dose lowering techniques have been used including automated exposure control and adjustment of mA and /or KV according to patient size. Normal and symmetrical shape and density of brain parenchyma above and below the tentorium is seen. T here is no mass, midline shift or hydrocephalus. No intra/extra-axial collections demonstrated. There is no intracranial hemorrhage. The calvarium is intact. IMPRESSION: 1. Normal brain and skull. Computed Tomographic Radiation Dosimetry Report: Total CTDI vol = 53.47mGy Total DLP = 965.81mGy-cm A ll CT scans at this medical facility are performed using dose modulation techniques as appropriate to a performed exam including the following: Automated exposure control was utilized; adjustment of the MA and/or KvP according to patient size; and use of iterative reconstruction technique.
[2024-11-27] MEDS: MAGNESIUM OXIDE 400 MG TAB PO ONE (12:41)
[2024-11-27] MEDS: THIAMINE HCL 100 MG TAB PO ONE (12:42)
[2024-11-27] MEDS: FOLIC ACID 1 MG TAB PO ONE (12:42)
[2024-11-27] MEDS: MULTIPLE VITAMIN TAB PO ONE (12:42)
--- NOTE | 2024-11-27 14:17 | DVHINCON2 ---
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 Workup also shows a grade 2 isthmic spondylolisthesis at l5/S1 no bowel or bladder incontinence he is having balance trouble no loc from fall Allergies and medications Allergies: Coded Allergies: No Known Drug Allergy (Verified Allergy, Unknown, 11/25/19) Home Meds Reported Medications [Unk Abx] No Conflict Check 10/04/11 Review of systems Review of Systems: CVS:Normal, RESPIRATORY:Normal, GI:Normal, :Normal, NEURO:Normal Examination Vital signs Vital Signs Date Time Temp Pulse Resp B/P (MAP) Pulse Ox O2 Delivery O2 Flow Rate FiO2 11/27/24 13:00 97.8 75 18 124/78 (93) 94 97.8 11/27/24 08:00 Room Air* 0 21 Medications Current Medications Medications (Trade) Dose Ordered Sig/Thang Route PRN Reason Start Time Stop Time Status Last Admin Ceftriaxone Sodium 50 ml @ 100 mls/hr DAILY@09 IV 11/27/24 09:00 11/27/24 09:53 Folic Acid 1 mg/ Multivitamins 10 ml/Magnesium Sulfate 8 meq/ Thiamine HCl 100 mg/Dextrose 1,013.2 ml @ 125.001 mls/hr DAILY@1800 INJ 11/26/24 18:00 11/27/24 11:20 DC 11/26/24 19:49 Chlordiazepoxide HCl (Librium Capsule) 50 mg Q8H PO 11/26/24 15:00 11/27/24 07:01 DC 11/26/24 15:16 Chlordiazepoxide HCl (Librium Capsule) 50 mg Q12H PO 11/27/24 19:00 11/28/24 07:01 Chlordiazepoxide HCl (Librium Capsule) 25 mg Q12H PO 11/28/24 19:00 11/29/24 07:01 Chlordiazepoxide HCl (Librium Capsule) 25 mg QAM PO 11/30/24 07:00 11/30/24 07:01 Folic Acid 1 mg DAILY PO 11/28/24 10:00 Multivitamins (Mvi Tab) 1 tab DAILY PO 11/28/24 10:00 Magnesium Oxide (Mag-Ox Tablet) 400 mg DAILY PO 11/28/24 10:00 Thiamine HCl 100 mg DAILY PO 11/28/24 10:00 Laboratory Labs Test 11/26/24 08:12 11/26/24 05:25 Range/Units Urine Color Light-green Yellow Urine Clarity Clear Clear Urine pH 5.5 5.0-9.0 Urine Specific [place] 1.031 1.001-1.035 Urine Protein Negative Negative Urine Ketones Negative Negative Urine Blood Negative Negative /uL Urine Nitrite Negative Negative Urine Bilirubin Negative Negative Urine Urobilinogen Normal Negative mg/dL Urine Leukocyte Esterase Negative Negative /uL Urine RBC 1 0 - 3 /hpf Urine Microscopic WBC 4 H 0-3 /HPF Urine Squamous Epithelial Cells Few <5 /hpf Urine Amorphous Crystals Few None Seen /hpf Urine Bacteria Few H None Seen /hpf Urine Mucus Few None Seen Urine Glucose Normal Normal mg/dL Urine Opiates Screen Pos NEGATIVE Urine Fentanyl Screen Neg NEGATIVE Urine Barbiturates Screen Neg NEGATIVE Urine Phencyclidine Screen Neg NEGATIVE Urine Amphetamines Screen Neg NEGATIVE Urine Benzodiazepines Screen Neg NEGATIVE Urine Cocaine Screen Neg NEGATIVE Urine Cannabinoids Screen Neg NEGATIVE White Blood Count 11.0 H 4.4-10.8 10^3/uL Red Blood Count 4.61 4.5-5.90 10^6/uL Hemoglobin 14.4 13.5-17.5 g/dL Hematocrit 41.2 41.0-53.0 % Mean Corpuscular Volume 89.5 80.0-100.0 fL Mean Corpuscular Hemoglobin 31.2 28.0-32.0 pg Mean Corpuscular Hemoglobin Concent 34.8 32.0-36.0 g/dL Red Cell Distribution Width 12.7 11.8-14.3 % Platelet Count 229 140-450 10^3/uL Mean Platelet Volume 8.8 6.9-10.8 fL Neutrophils (%) (Auto) 75.9 37.0-80.0 % Lymphocytes (%) (Auto) 17.3 10.0-50.0 % Monocytes (%) (Auto) 5.6 0.0-12.0 % Eosinophils (%) (Auto) 0.9 0.0-7.0 % Basophils (%) (Auto) 0.3 0.0-2.0 % Neutrophils # (Auto) 8.3 1.6-8.6 10 ^3/uL Lymphocytes # (Auto) 1.9 0.4-5.4 10 ^3/uL Monocytes # (Auto) 0.6 0-1.3 10 ^3/uL Eosinophils # (Auto) 0.1 0-0.8 10 ^3/uL Basophils # (Auto) 0 0-0.2 10 ^3/uL Nucleated Red Blood Cells 0.1 % Sodium Level 141 136-145 mmol/L Potassium Level 4.0 3.5-5.1 mmol/L Chloride Level 109 H 98-107 mmol/L Carbon Dioxide Level 23 20-31 mmol/L Anion Gap 9 5-15 Blood Urea Nitrogen 17 9-23 mg/dL Creatinine 1.03 0.700-1.30 mg/dL Glomerular Filtration Rate Calc 85 >90 mL/min BUN/Creatinine Ratio 16.5 10.0-20.0 Serum Glucose 123 H 74-106 mg/dL Calcium Level 9.9 8.7-10.4 mg/dL Total Bilirubin 0.5 0.2-1.0 mg/dL Aspartate Amino Transferase (AST) 31 <34 U/L Alanine Aminotransferase (ALT) 36 7-40 U/L Alkaline Phosphatase 57 46-116 U/L Total Protein 6.3 5.7-8.2 g/dL Albumin 4.3 3.2-4.8 g/dL Plasma/Serum Blood Alcohol < 3.0 <10 mg/dL PROCEDURE(s): LS2CT - LS SPINE WO CONTRAST REASON: Status post trauma 6 ft fall ORDER NUMBER(s): [id number], ACCESSION NUMBER(s): [id number] CT OF THE THORACIC AND LUMBAR SPINE WITHOUT CONTRAST HISTORY: Trauma status post 6 ft fall COMPARISON: None TECHNIQUE: Axial images through the thoracic and lumbar spine were obtained without contrast. Coronal and sagittal reformats were obtained. One or more of the following radiation dose reduction techniques were used for this examination: automated exposure control, adjustment of the mA and/or kV according to patient size, use of iterative reconstruction technique. Dose: Thoracic spine: CTDIvol: 36.36 mGy, DLP: 22770.50 mGy-cm, lumbar spine: CTDIvol: 35.61 mGy, DLP: 1129.36 mGy-cm FINDINGS: Thoracic spine: There is no acute displaced fracture. There are mild degenerative changes of the thoracic spine characterized by endplate osteophytosis and minimal intervertebral disc space narrowing. There is no high-grade spinal canal or neural foraminal stenosis. Scattered nonspecific and primarily dependent pulmonary opacities are seen within the lungs. The paraspinal soft tissues are unremarkable. A left clavicular fracture is incompletely assessed. Lumbar spine: There is a mild acute compression fracture involving the superior endplate of L2. There is no osseous retropulsion. There is mild height loss. There is grade 1 anterolisthesis of L5 on S1 on the basis of bilateral pars defects, contributing to severe bilateral neural foraminal narrowing. Sclerotic changes are present across the opposing endplates of L5-S1. There is also vacuum disc phenomenon at this level. There is facet arthropathy within the lower lumbar spine. There are bilateral nonobstructing renal calculi. IMPRESSION: 1. Mild acute compression fracture of the superior endplate of L2 without osseous retropulsion. 2. Degenerative changes of the thoracolumbar spine as detailed, most pronounced at L5-S1. 3. Incompletely assessed left clavicular fracture. 4. Additional findings as detailed. ATED BY: NARCISO PEREZ MD DICTATED DATE/TIME: 11/25/242012 SIGNED BY: NARCISO PEREZ MD SIGNED DATE/TIME: 11/25/242012 CC: Examination: GENERAL:Normal, HEENT:Normal, NECK:Normal, LUNGS:Normal, MSK:Abnormal, SKIN:Abnormal, NEURO:Abnormal Problem List/Assessment/Plan Problems: (1) Isthmic spondylolisthesis Assessment and Plan 1. L5/S1 spondylolisthesis with spinal stenosis 2. Lumbar 2 compression fracture I had a long discussion with patient and about treatment plan and we are going to offer him a lumbar 5 to sacral1 posterior spinal decompression and interbody fusion with PEEK cage/bone graft and instrumentation with L2 kyphoplasty Risks and benefits discussed with patient and he wants to proceed Plan discussed with Plan discussed with: Patient DUKE ONTIVEROS MD Nov 27, 2024 14:17
--- NOTE | 2024-11-27 15:05 | DVH ---
CLINICAL INDICATION: fracture TECHNIQUE: 2 radiographic views of the left clavicle were obtained. Comparison: XY L CLAVICLE COMPLETE XRAY on DOS: 11/25/24 FINDINGS/IMPRESSION: There is no evidence of acute fracture or dislocation. Old healed left clavicle fracture. If symptoms persist consider MRI. The visualized joint space is well maintained. The alignment is anatomical. There is no radiopaque foreign body.
--- NOTE | 2024-11-27 16:23 | DVH ---
EXAM: MRI LUMBAR SPINE WO CONTRAST CLINICAL HISTORY: lumbar fracture COMPARISON: CT lumbar spine 11/25/2024 TECHNIQUE: MRI imaging of the lumbar was performed on a MRI imaging system without intravenous contrast. FINDINGS: 5 [id number] lumbar-type vertebrae. Straightening of the lumbar lordosis. There is acute compre ssion fracture of the superior vertebral body L2 with associated marrow edema about 20% loss of super ior vertebral body height. Grade 1 anterolisthesis of L5 on S1 with severe disc space degenerative changes, endplate irregularit y and endplate degenerative marrow signal. The conus terminates at the level of upper vertebral body of L2 with no abnormal cord signal. T12-L1: No significant spinal canal or neural foramina stenosis. L1-L2: Mild posterior disc bulge with central annular fissure without significant spinal canal or jackson ral foramina stenosis. Mild bilateral facet effusion. L2-L3: Minimal posterior disc bulge with central annular fissure without significant spinal canal or neural foramina stenosis. Mild bilateral facet effusion. L3-L4: No significant spinal canal or neural foramina stenosis. Mild bilateral facet effusion L4-L5: Minimal posterior disc bulge without significant spinal canal or neural foramina stenosis. Mi ld bilateral facet effusion. L5-S1: Mild posterior disc osteophyte complex without significant spinal canal stenosis. Severe bilat eral neural foramina stenosis. The paraspinal muscles are unremarkable. Small right renal cyst. IMPRESSION: Acute compression fracture of L2 with a 20% loss of superior vertebral body height. Central annular fissure at L1-L2 and L2-L3 which could be a cause of pain. Severe bilateral neural foramina stenosis at L5-S1.
[2024-11-28] VITALS (8 sets, daily range): BP systolic 108–142; BP diastolic 64–96; PULSE 72–94; RESP 16–19; TEMP 97.8–99.1; O2SAT 92–97
[2024-11-28] MEDS: MULTIPLE VITAMIN TAB PO SCH (10:00)
[2024-11-28] MEDS: THIAMINE HCL 100 MG TAB PO SCH (10:00)
[2024-11-28] MEDS: MAGNESIUM OXIDE 400 MG TAB PO SCH (10:00)
[2024-11-28] MEDS: FOLIC ACID 1 MG TAB PO SCH (10:00)
--- NOTE | 2024-11-28 12:34 | DVHPN2 ---
Reviewed: Care Plan, H&P, Labs, Medications, Previous Orders, Radiology Changes from previous H/P or p: No Changes Eyes: No Pain, No Vision change, No Conjunctivae inflammation, No Eyelid inflammation, No Other, No Redness ENT: No Ear pain, No Ear discharge, No Nose pain, No Nose discharge, No Nose congestion, No Mouth pain, No Mouth swelling, No Throat pain, No Throat swelling, No Other Cardiovascular: No Chest Pain, No Palpitations, No Orthopnea, No Paroxysmal Noc. Dyspnea, No Edema, No Lt Headedness, No Other Gastrointestinal: No Nausea, No Vomiting, No Abdominal Pain, No Diarrhea, No Constipation, No Melena, No Hematochezia, No Other Genitourinary: No Dysuria, No Frequency, No Incontinence, No Hematuria, No Retention, No Other Musculoskeletal: No other; neck pain, shoulder pain; No arm pain; back pain; No hand pain, No leg pain, No foot pain Skin: No Rash, No Lesions, No Jaundice, No Bruising, No Other Objective Vitals Vital Signs Date Time Temp Pulse Resp B/P (MAP) Pulse Ox O2 Delivery O2 Flow Rate FiO2 11/28/24 09:00 97.8 73 16 108/64 (79) 94 97.8 11/27/24 20:00 Room Air* 0 21 Intake/Output Intake and Output 11/28/24 07:00 Intake Total 2218 ml Output Total 1375 ml Balance 843 ml Intake Oral 2218 ml Output Urine Total 1375 ml Medications Current Medications Medications Dose Ordered Sig/Thang Route Start Time Stop Time Status Last Admin Dose Admin Sodium Chloride 1,000 ml @ 60 mls/hr [id number] IV 11/26/24 00:00 11/28/24 02:00 60 MLS/HR Acetaminophen/ Hydrocodone Bitart 1 tab Q4HP PRN PO 11/26/24 00:00 11/26/24 14:49 1 TAB Ondansetron HCl 4 mg Q4HP PRN IV 11/26/24 00:00 11/26/24 03:00 4 MG Docusate Sodium 100 mg BIDPRN PRN PO 11/26/24 00:00 Enoxaparin Sodium 40 mg DAILY SC 11/26/24 10:00 11/27/24 09:53 40 MG Acetaminophen 650 mg Q6HP PRN PO 11/26/24 00:00 11/27/24 10:04 650 MG Morphine Sulfate 2 mg Q4HPRN PRN IV 11/26/24 00:00 11/27/24 20:38 2 MG Ceftriaxone Sodium 50 ml @ 100 mls/hr DAILY@09 IV 11/27/24 09:00 11/27/24 09:53 100 MLS/HR Nitroglycerin 0.4 mg Q5MINP PRN SL 11/26/24 02:30 Morphine Sulfate 2 mg Q30M PRN IV 11/26/24 02:30 Chlordiazepoxide HCl 25 mg Q12H PO 11/28/24 19:00 11/29/24 07:01 Chlordiazepoxide HCl 25 mg QAM PO 11/30/24 07:00 11/30/24 07:01 Folic Acid 1 mg DAILY PO 11/28/24 10:00 Multivitamins 1 tab DAILY PO 11/28/24 10:00 Magnesium Oxide 400 mg DAILY PO 11/28/24 10:00 Thiamine HCl 100 mg DAILY PO 11/28/24 10:00 Laboratory Results Laboratory Tests 11/26/24 05:25 Urinalysis Test 11/26/24 08:12 Urine Color Light-green (Yellow) Urine Clarity Clear (Clear) Urine pH 5.5 (5.0-9.0) Urine Specific [place] 1.031 (1.001-1.035) Urine Protein Negative (Negative) Urine Ketones Negative (Negative) Urine Blood Negative /uL (Negative) Urine Nitrite Negative (Negative) Urine Bilirubin Negative (Negative) Urine Urobilinogen Normal mg/dL (Negative) Urine Leukocyte Esterase Negative /uL (Negative) Urine RBC 1 /hpf (0 - 3) Urine Microscopic WBC 4 /HPF (0-3) H Urine Squamous Epithelial Cells Few /hpf (<5) Urine Amorphous Crystals Few /hpf (None Seen) Urine Bacteria Few /hpf (None Seen) H Urine Mucus Few (None Seen) Urine Glucose Normal mg/dL (Normal) Labs and/or images reviewed: Labs reviewed by me, Image(s) reviewed by me Assessment/Plan Assessment/Plan Compression fracture of L2 lumbar vertebra: Consult for Dr. Joe pending Spondylolisthesis L5-S1 , spine surgeon Dr. 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
[2024-11-28 13:54] LABS: Hematocrit 43.7 % (41.0-53.0); Hemoglobin 15.0 g/dL (13.5-17.5); Mean Corpuscular Hemoglobin 30.8 pg (28.0-32.0); Mean Corpuscular Volume 89.8 fL (80.0-100.0); Nucleated Red Blood Cells % 0.0 %
[2024-11-28 14:08] LABS: INR 0.98 (0.9-1.15); Partial Thromboplastin Time 30.0 SEC (24.5-34.5); Prothrombin Time 10.4 sec (9.3-11.8)
[2024-11-28 19:57] LABS: Urine Protein, UAD Negative (Negative)
--- NOTE | 2024-11-28 23:09 | DVHINCON2 ---
Date of service: Nov 28, [address] Padilla Reason for Consultation Altered mental status, status post fall History of Present Illness Not finalized 11/25/24 Mult. trauma (HPI) HPI Comments PT BIBA FOR FALLING OFF LADDER APPROX. 6FT. 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 (-) LOC, (+) LEFT SHOULDER & BACK PAIN. C-COLLAR IN PLACE. GCS-15, ALL VSS. Urinalysis, 11/28/2024: Unremarkable UDS, 11/26/2024: Opiates Plasma alcohol, 11/18/2024: Normal CBC, 11/28/2024: Unremarkable CMP, 11/26/2024: Unremarkable CT head, 11/27/2024: Normal brain and skull MRI lumbar spine, 11/27/2024, Acute compression fracture of L2 with a 20% loss of superior vertebral body height. Central annular fissure at L1-L2 and L2-L3 which could be a cause of pain. Severe bilateral neural foramina stenosis at L5-S1. Chief Complaint: Fall Injury PAST MEDICAL HISTORY: Denies Surgical History: Denies all surgeries Family History Family History: Reviewed,noncontributory to illness, No family hx of Cancer, No family hx of DM, No family hx of Heart tevin, No family hx of HTN, No family hx ofKidney tevin, No family hx of Liver tevin, No family hx of Lung tevin, No family hx of Stroke Social History Smoker: Non-Smoker Alcohol: Denies ETOH Use Drugs: Denies Drug Use Family History: Patient reports no known family medical history. Allergies: Coded Allergies: No Known Drug Allergy (Verified Allergy, Unknown, 11/25/19) Home Meds Active Scripts Levofloxacin Hemihydrate (LEVAQUIN 500 MG) 500 Mg Tab, 1 TAB PO DAILY, #7 TAB Prov:JEFF PADILLA MD 11/29/24 Methocarbamol (Methocarbamol) 750 Mg Tab, 750 MG PO TID, #30 TAB Prov:JEFF PADILLA MD 11/29/24 Oxycodone W/ Acetaminophen (Percocet 5/325MG) 1 Tab Tb, 1 TAB PO QID PRN, #40 TAB Prov:JEFF PADILLA MD 11/29/24 Reported Medications Carisoprodol (Soma) 350 Mg Tab, 350 MG PO QID, #40 TAB 11/29/24 [Unk Abx] No Conflict Check 10/04/11 Current Medications Current Medications Medications (Trade) Dose Ordered Sig/Thang Route PRN Reason Start Time Stop Time Status Last Admin Chlordiazepoxide HCl (Librium Capsule) 25 mg Q12H PO 11/28/24 19:00 11/29/24 07:01 Chlordiazepoxide HCl (Librium Capsule) 25 mg QAM PO 11/30/24 07:00 11/30/24 07:01 Folic Acid 1 mg DAILY PO 11/28/24 10:00 11/28/24 10:00 Multivitamins (Mvi Tab) 1 tab DAILY PO 11/28/24 10:00 11/28/24 10:00 Magnesium Oxide (Mag-Ox Tablet) 400 mg DAILY PO 11/28/24 10:00 11/28/24 10:00 Thiamine HCl 100 mg DAILY PO 11/28/24 10:00 11/28/24 10:00 Vital Signs Vital Signs Date Time Temp Pulse Resp B/P (MAP) Pulse Ox O2 Delivery O2 Flow Rate FiO2 11/28/24 21:00 99.1 85 18 138/96 (110) 97 99.1 11/28/24 20:00 Room Air* 0 21 Labs/Diagnostic Data Labs Test 11/28/24 17:46 11/28/24 13:20 11/26/24 08:12 11/26/24 05:25 Range/Units Urine Color Light-yellow Yellow Urine Clarity Clear Clear Urine pH 7.0 5.0-9.0 Urine Specific [place] 1.011 1.001-1.035 Urine Protein Negative Negative Urine Ketones Negative Negative Urine Blood Negative Negative /uL Urine Nitrite Negative Negative Urine Bilirubin Negative Negative Urine Urobilinogen Normal Negative mg/dL Urine Leukocyte Esterase Negative Negative /uL Urine RBC 1 0 - 3 /hpf Urine Microscopic WBC 1 0-3 /HPF Urine Squamous Epithelial Cells None seen <5 /hpf Urine Bacteria None seen None Seen /hpf Urine Glucose Normal Normal mg/dL White Blood Count 7.9 # 4.4-10.8 10^3/uL Red Blood Count 4.87 4.5-5.90 10^6/uL Hemoglobin 15.0 13.5-17.5 g/dL Hematocrit 43.7 41.0-53.0 % Mean Corpuscular Volume 89.8 80.0-100.0 fL Mean Corpuscular Hemoglobin 30.8 28.0-32.0 pg Mean Corpuscular Hemoglobin Concent 34.4 32.0-36.0 g/dL Red Cell Distribution Width 12.8 11.8-14.3 % Platelet Count 239 140-450 10^3/uL Mean Platelet Volume 9.1 6.9-10.8 fL Neutrophils (%) (Auto) 67.7 37.0-80.0 % Lymphocytes (%) (Auto) 24.3 10.0-50.0 % Monocytes (%) (Auto) 6.1 0.0-12.0 % Eosinophils (%) (Auto) 1.3 0.0-7.0 % Basophils (%) (Auto) 0.6 0.0-2.0 % Neutrophils # (Auto) 5.3 1.6-8.6 10 ^3/uL Lymphocytes # (Auto) 1.9 0.4-5.4 10 ^3/uL Monocytes # (Auto) 0.5 0-1.3 10 ^3/uL Eosinophils # (Auto) 0.1 0-0.8 10 ^3/uL Basophils # (Auto) 0 0-0.2 10 ^3/uL Nucleated Red Blood Cells 0.0 % Prothrombin Time 10.4 9.3-11.8 sec Prothrombin Time INR 0.98 0.9-1.15 Activated Partial Thromboplast Time 30.0 24.5-34.5 SEC Urine Amorphous Crystals Few None Seen /hpf Urine Mucus Few None Seen Urine Opiates Screen Pos NEGATIVE Urine Fentanyl Screen Neg NEGATIVE Urine Barbiturates Screen Neg NEGATIVE Urine Phencyclidine Screen Neg NEGATIVE Urine Amphetamines Screen Neg NEGATIVE Urine Benzodiazepines Screen Neg NEGATIVE Urine Cocaine Screen Neg NEGATIVE Urine Cannabinoids Screen Neg NEGATIVE Sodium Level 141 136-145 mmol/L Potassium Level 4.0 3.5-5.1 mmol/L Chloride Level 109 H 98-107 mmol/L Carbon Dioxide Level 23 20-31 mmol/L Anion Gap 9 5-15 Blood Urea Nitrogen 17 9-23 mg/dL Creatinine 1.03 0.700-1.30 mg/dL Glomerular Filtration Rate Calc 85 >90 mL/min BUN/Creatinine Ratio 16.5 10.0-20.0 Serum Glucose 123 H 74-106 mg/dL Calcium Level 9.9 8.7-10.4 mg/dL Total Bilirubin 0.5 0.2-1.0 mg/dL Aspartate Amino Transferase (AST) 31 <34 U/L Alanine Aminotransferase (ALT) 36 7-40 U/L Alkaline Phosphatase 57 46-116 U/L Total Protein 6.3 5.7-8.2 g/dL Albumin 4.3 3.2-4.8 g/dL Plasma/Serum Blood Alcohol < 3.0 <10 mg/dL Plan discussed with: ALFONSO Felton MD Nov 28, 2024 23:09
[2024-11-29 01:00] VITALS: BP 122/81; PULSE 80; RESP 18; TEMP 98.9; O2SAT 92
[2024-11-29 05:00] VITALS: BP 126/91; PULSE 78; RESP 17; TEMP 97.6; O2SAT 94
[2024-11-29 08:00] VITALS: PULSE 78; PULSE 83; O2SAT 94
[2024-11-29 09:00] VITALS: BP 129/87; PULSE 78; RESP 16; TEMP 97.9; O2SAT 90
[2024-11-29] MEDS ORDERED: CARI-277 PO (10:56)
[2024-11-29] MEDS ORDERED: PERCOT PO (10:58)
[2024-11-29] MEDS ORDERED: METH-1182 PO (10:58)
--- NOTE | 2024-11-29 11:07 | DVHPN2 ---
Reviewed: Care Plan, H&P, Labs, Medications, Previous Orders, Radiology Changes from previous H/P or p: No Changes Eyes: No Pain, No Vision change, No Conjunctivae inflammation, No Eyelid inflammation, No Other, No Redness ENT: No Ear pain, No Ear discharge, No Nose pain, No Nose discharge, No Nose congestion, No Mouth pain, No Mouth swelling, No Throat pain, No Throat swelling, No Other Cardiovascular: No Chest Pain, No Palpitations, No Orthopnea, No Paroxysmal Noc. Dyspnea, No Edema, No Lt Headedness, No Other Gastrointestinal: No Nausea, No Vomiting, No Abdominal Pain, No Diarrhea, No Constipation, No Melena, No Hematochezia, No Other Genitourinary: No Dysuria, No Frequency, No Incontinence, No Hematuria, No Retention, No Other Musculoskeletal: No other; neck pain, shoulder pain; No arm pain; back pain; No hand pain, No leg pain, No foot pain Skin: No Rash, No Lesions, No Jaundice, No Bruising, No Other Objective Vitals Vital Signs Date Time Temp Pulse Resp B/P (MAP) Pulse Ox O2 Delivery O2 Flow Rate FiO2 11/29/24 05:00 97.6 78 17 126/91 (103) 94 97.6 11/28/24 20:00 Room Air* 0 21 Intake/Output Intake and Output 11/29/24 07:00 Intake Total 850 ml Output Total 1600 ml Balance -750 ml Intake Oral 850 ml Output Urine Total 1600 ml Medications Current Medications Medications Dose Ordered Sig/Thang Route Start Time Stop Time Status Last Admin Dose Admin Sodium Chloride 1,000 ml @ 60 mls/hr [id number] IV 11/26/24 00:00 11/28/24 18:41 60 MLS/HR Acetaminophen/ Hydrocodone Bitart 1 tab Q4HP PRN PO 11/26/24 00:00 11/26/24 14:49 1 TAB Ondansetron HCl 4 mg Q4HP PRN IV 11/26/24 00:00 11/26/24 03:00 4 MG Docusate Sodium 100 mg BIDPRN PRN PO 11/26/24 00:00 Enoxaparin Sodium 40 mg DAILY SC 11/26/24 10:00 11/29/24 09:40 40 MG Acetaminophen 650 mg Q6HP PRN PO 11/26/24 00:00 11/27/24 10:04 650 MG Morphine Sulfate 2 mg Q4HPRN PRN IV 11/26/24 00:00 11/27/24 20:38 2 MG Ceftriaxone Sodium 50 ml @ 100 mls/hr DAILY@09 IV 11/27/24 09:00 11/29/24 09:40 100 MLS/HR Nitroglycerin 0.4 mg Q5MINP PRN SL 11/26/24 02:30 Morphine Sulfate 2 mg Q30M PRN IV 11/26/24 02:30 Chlordiazepoxide HCl 25 mg QAM PO 11/30/24 07:00 11/30/24 07:01 Folic Acid 1 mg DAILY PO 11/28/24 10:00 11/29/24 09:40 1 MG Multivitamins 1 tab DAILY PO 11/28/24 10:00 11/29/24 09:40 1 TAB Magnesium Oxide 400 mg DAILY PO 11/28/24 10:00 11/29/24 09:40 400 MG Thiamine HCl 100 mg DAILY PO 11/28/24 10:00 11/29/24 09:40 100 MG Laboratory Results Laboratory Tests 11/26/24 05:25 11/28/24 13:20 Coagulation Test 11/28/24 13:20 Prothrombin Time 10.4 sec (9.3-11.8) Prothrombin Time INR 0.98 (0.9-1.15) Activated Partial Thromboplast Time 30.0 SEC (24.5-34.5) Urinalysis Test 11/26/24 08:12 11/28/24 17:46 Urine Amorphous Crystals Few /hpf (None Seen) Urine Mucus Few (None Seen) Urine Color Light-yellow (Yellow) Urine Clarity Clear (Clear) Urine pH 7.0 (5.0-9.0) Urine Specific [place] 1.011 (1.001-1.035) Urine Protein Negative (Negative) Urine Ketones Negative (Negative) Urine Blood Negative /uL (Negative) Urine Nitrite Negative (Negative) Urine Bilirubin Negative (Negative) Urine Urobilinogen Normal mg/dL (Negative) Urine Leukocyte Esterase Negative /uL (Negative) Urine RBC 1 /hpf (0 - 3) Urine Microscopic WBC 1 /HPF (0-3) Urine Squamous Epithelial Cells None seen /hpf (<5) Urine Bacteria None seen /hpf (None Seen) Urine Glucose Normal mg/dL (Normal) Labs and/or images reviewed: Labs reviewed by me, Image(s) reviewed by me Assessment/Plan Assessment/Plan Compression fracture of L2 lumbar vertebra: Consult for Dr. Joe appreciated Spondylolisthesis L5-S1 , spine surgeon Dr. 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 He does not want to wait and wants to be discharged. Plan discussed with: Patient Date of Service: Nov 29, 2024 Billing Provider: JEFF PADILLA MD Common Visit Codes: [id number] INP/OBS CARE(HIGH) JEFF PADILLA MD Nov 29, 2024 11:07
[2024-11-29] MEDS ORDERED: LEVO500T91 PO (11:09)
--- NOTE | 2024-11-29 11:15 | DVHDS2 ---
Discharge Summary Date of Admission Nov 26, 2024 at 02:20 Date of Discharge: Nov 29, 2024 Admitting Diagnosis Lumbar spine fracture Wounds: L2 compression fracture Old left clavicle fracture Labs/Diagnostic Data: Laboratory Results Test 11/28/24 17:46 11/28/24 13:20 11/26/24 08:12 11/26/24 05:25 Urine Color Light-yellow (Yellow) Urine Clarity Clear (Clear) Urine pH 7.0 (5.0-9.0) Urine Specific [place] 1.011 (1.001-1.035) Urine Protein Negative (Negative) Urine Ketones Negative (Negative) Urine Blood Negative /uL (Negative) Urine Nitrite Negative (Negative) Urine Bilirubin Negative (Negative) Urine Urobilinogen Normal mg/dL (Negative) Urine Leukocyte Esterase Negative /uL (Negative) Urine RBC 1 /hpf (0 - 3) Urine Microscopic WBC 1 /HPF (0-3) Urine Squamous Epithelial Cells None seen /hpf (<5) Urine Bacteria None seen /hpf (None Seen) Urine Glucose Normal mg/dL (Normal) White Blood Count 7.9 10^3/uL (4.4-10.8) Red Blood Count 4.87 10^6/uL (4.5-5.90) Hemoglobin 15.0 g/dL (13.5-17.5) Hematocrit 43.7 % (41.0-53.0) Mean Corpuscular Volume 89.8 fL (80.0-100.0) Mean Corpuscular Hemoglobin 30.8 pg (28.0-32.0) Mean Corpuscular Hemoglobin Concent 34.4 g/dL (32.0-36.0) Red Cell Distribution Width 12.8 % (11.8-14.3) Platelet Count 239 10^3/uL (140-450) Mean Platelet Volume 9.1 fL (6.9-10.8) Neutrophils (%) (Auto) 67.7 % (37.0-80.0) Lymphocytes (%) (Auto) 24.3 % (10.0-50.0) Monocytes (%) (Auto) 6.1 % (0.0-12.0) Eosinophils (%) (Auto) 1.3 % (0.0-7.0) Basophils (%) (Auto) 0.6 % (0.0-2.0) Neutrophils # (Auto) 5.3 10 ^3/uL (1.6-8.6) Lymphocytes # (Auto) 1.9 10 ^3/uL (0.4-5.4) Monocytes # (Auto) 0.5 10 ^3/uL (0-1.3) Eosinophils # (Auto) 0.1 10 ^3/uL (0-0.8) Basophils # (Auto) 0 10 ^3/uL (0-0.2) Nucleated Red Blood Cells 0.0 % Prothrombin Time 10.4 sec (9.3-11.8) Prothrombin Time INR 0.98 (0.9-1.15) Activated Partial Thromboplast Time 30.0 SEC (24.5-34.5) Urine Amorphous Crystals Few /hpf (None Seen) Urine Mucus Few (None Seen) Urine Opiates Screen Pos (NEGATIVE) Urine Fentanyl Screen Neg (NEGATIVE) Urine Barbiturates Screen Neg (NEGATIVE) Urine Phencyclidine Screen Neg (NEGATIVE) Urine Amphetamines Screen Neg (NEGATIVE) Urine Benzodiazepines Screen Neg (NEGATIVE) Urine Cocaine Screen Neg (NEGATIVE) Urine Cannabinoids Screen Neg (NEGATIVE) Sodium Level 141 mmol/L (136-145) Potassium Level 4.0 mmol/L (3.5-5.1) Chloride Level 109 mmol/L (98-107) Carbon Dioxide Level 23 mmol/L (20-31) Anion Gap 9 (5-15) Blood Urea Nitrogen 17 mg/dL (9-23) Creatinine 1.03 mg/dL (0.700-1.30) Glomerular Filtration Rate Calc 85 mL/min (>90) BUN/Creatinine Ratio 16.5 (10.0-20.0) Serum Glucose 123 mg/dL (74-106) Calcium Level 9.9 mg/dL (8.7-10.4) Total Bilirubin 0.5 mg/dL (0.2-1.0) Aspartate Amino Transferase (AST) 31 U/L (<34) Alanine Aminotransferase (ALT) 36 U/L (7-40) Alkaline Phosphatase 57 U/L (46-116) Total Protein 6.3 g/dL (5.7-8.2) Albumin 4.3 g/dL (3.2-4.8) Plasma/Serum Blood Alcohol < 3.0 mg/dL (<10) Other Laboratory Tests 6/30/25 13:20 11/26/24 05:25 Brief Hx & Hospital Course: 4-year-old male burden to the ER with a history that he fell off of a ladder 8 ft high. Complained of pain in the low back. CT LS spine showed compression fracture L2 confirmed by MRI also had spondylolisthesis L5 over S spine surgeon Dr. Joe was consulted discussed with the patient about posterior spinal decompression for which the patient agreed first, but now changed his mind and wants to be discharged home today itself patient also complained of pain of the left clavicle x-ray showed old clavicle fracture no new fracture possible alcohol abuse treated with a banana bag and Librium CT head is negative neurology consult was placed for altered mental status and confusion . He decided to leave before waiting. at the bedside. She tells me that the [employer]s comp case not covering his injury and will be going to [facility] through [facility] insurance. Consults/Reason for consult Surgeon Dr. Joe Operations or Procedures CT LS spine MRI LS spine X ray left clavicle Condition at Discharge: Fair Final Diagnosis/Problems List Compression fracture of L2 lumbar vertebra: Consult for Dr. Joe appreciated Spondylolisthesis L5-S1 , spine surgeon Dr. Joe planning for posterior spinal decompression, but the patient changed his mind and does not want any surgery and wants to go home today itself Intractable pain Old left clavicle fracture, x-ray left clavicle shows no new fracture Leukocytosis, unspecified: Rocephin Status post fall from ladder Acute metabolic encephalopathy with altered mental status: CT head negative History of alcohol abuse Discharge Disposition: Home Discharge Instruct/Medications Diet: Regular Activity: Light activity Medications: Use Medications as prescribed Follow up with your primary Dr at [facility] comp dr Scheduled Carisoprodol (Soma), 350 MG PO QID, (Reported) Levofloxacin Hemihydrate (Levaquin 500 Mg), 1 TAB PO DAILY Methocarbamol (Methocarbamol), 750 MG PO TID Scheduled PRN Oxycodone W/ Acetaminophen (Percocet 5/325MG), 1 TAB PO QID PRN Miscellaneous Medications [Unk Abx], (Reported) 35 (Time taken for discharge summary 35 minutes) Discharge Statement: "Patient was advised to return to the ER or call 911 if any headaches, dizziness, shortness of breath, chest pain, abdominal pain, bleeding, fevers, or worsening of medical condition. Patient was counseled about treatment plan, medications, possible side effects, patientverbalized understanding. All questions were answered to the best of my ability. This discharge took greater then 30 minutes in planning, reviewing documentation, counseling the patient, and discussing with other team members." ASSESSMENT ASSESSMENT Hospital Course Improved Assessment Compression fracture of L2 lumbar vertebra: Consult for Dr. Joe appreciated Spondylolisthesis L5-S1 , spine surgeon Dr. Joe planning for posterior spinal decompression, but the patient changed his mind and does not want any surgery and wants to go home today itself Intractable pain Old left clavicle fracture, x-ray left clavicle shows no new fracture Leukocytosis, unspecified: Rocephin Status post fall from ladder Acute metabolic encephalopathy with altered mental status: CT head negative History of alcohol abuse Date of Service: Nov 29, 2024 Billing Provider: JEFF PADILLA MD Common Visit Codes: 72528-AXP/OBS DISCH DAY >30min JEFF PADILLA MD Nov 29, 2024 11:15
[2024-11-29 11:47] VITALS: BP 129/87; PULSE 78; RESP 16; TEMP 36.6; O2SAT 96
== END 2024-11-29 13:20 | disposition home or self-care (01) | DRG 551 ==
LOC: ER 18:32 → EDBD 18:32 → OVERFLOW 11-26 02:20 → TELE-WESTW 11-26 23:20
PROVIDERS: ADMIT Family Medicine; ATTEND Family Medicine
DX: S32.020A Wedge compression fracture of second lumbar vertebra, initial encounter for closed fracture (principal); G93.41 Metabolic encephalopathy; S42.025A Nondisplaced fracture of shaft of left clavicle, initial encounter for closed fracture; D72.829 Elevated white blood cell count, unspecified; M43.17 Spondylolisthesis, lumbosacral region; M47.815 Spondylosis without myelopathy or radiculopathy, thoracolumbar region; F10.10 Alcohol abuse, uncomplicated; M48.07 Spinal stenosis, lumbosacral region; Z79.899 Other long term (current) drug therapy; W11.XXXA Fall on and from ladder, initial encounter; Y93.89 Activity, other specified; Y92.89 Other specified places as the place of occurrence of the external cause; Y99.8 Other external cause status; Y90.9 Presence of alcohol in blood, level not specified
CPT/HCPCS: 36415; 70450; 72125; 72128; 72131; 72148; 73000; 80053; 80307; 80320; 81001; 85025; 85610; 85730; G0378; J1885; J2405